=== PATIENT | female | born 1990 | race Caucasian/White ===

== ENCOUNTER 2018-11-29 18:23 | Emergency (ER) | payer SELFPAY ==
[2018-11-29] MEDS ORDERED: LIDOCAINE VISCOUS 2% SOLN 15 ML UDC ONE (19:41)
[2018-11-29] MEDS ORDERED: MAGNE/ALUM HYDROXD 30 ML UCUP ONE (19:41)
[2018-11-29 19:47] LABS: Urine Blood TRACE (NEG); Urine Glucose NEGATIVE (NEG); Urine Protein 1+ (NEG); Urine Specific Gravity >1.030 (1.005-1.030)
[2018-11-29] MEDS ORDERED: NA CHLORIDE 0.9% 1,000 ML ONE (19:54)
[2018-11-29 19:57] LABS: Absolute Lymphocytes (CBC) 4.3 K/uL (0.7-4.9); Absolute Monocytes 1.4 K/uL (0.1-1.3); Absolute Neutrophil 6.7 K/uL (1.8-8.0); Basophils % 0.8 % (0-1.3); Eosinophils % 1.4 % (0-4.4); Hematocrit 41.2 % (36.0-45.0); Lymphocytes % 34.2 % (15.3-44.8); MPV 7.7 fL (7.6-11.3); Monocytes % 10.8 % (3.3-12.3); RBC Red Blood Cell Count 4.72 M/uL (3.86-4.86)
[2018-11-29 19:58] LABS: Barbiturates NEGATIVE (NEGATIVE); Benzodiazepines NEGATIVE (NEGATIVE); Cocaine NEGATIVE (NEGATIVE); METHAMPHETAM NEGATIVE (NEGATIVE); Methadone NEGATIVE (NEGATIVE); Opiates NEGATIVE (NEGATIVE); Phencyclidine NEGATIVE (NEGATIVE); THC Cannibis NEGATIVE (NEGATIVE)
[2018-11-29 20:12] LABS: BUN Blood Urea Nitrogen 12 mg/dL (7-18); Bicarbonate 25 mmol/L (21-32); Glucose Level 101 mg/dL (74-106); Potassium 3.2 mmol/L (3.5-5.1); Sodium Level 138 mmol/L (136-145)
--- NOTE | 2018-11-29 20:46 | ER ---
Nurse's Notes [facility] Name: Erica Null Age: 28 yrs Sex: Female : 1990 Arrival Date: 11/29/2018 Time: 18:27 Bed 30 Private MD: Diagnosis: Epilepsy and recurrent seizures Presentation: 11/29 18:28 Presenting complaint: EMS states: Seizures x5 times today, pt reports has had seizure sg like activity in the past but not really as bad as today , pt reports feeling sleepy and tired at this time. Transition of care: patient was not received from another setting of care. Onset of symptoms was November 29, 2018. Risk Assessment: Do you want to hurt yourself or someone else? Patient reports no desire to harm self or others. Initial Sepsis Screen: Does the patient meet any 2 criteria? No. Patient's initial sepsis screen is negative. Does the patient have a suspected source of infection? No. Patient's initial sepsis screen is negative. Care prior to arrival: Glucose check: 109. 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 - Social history:: Smoking status: Patient uses tobacco products. - Ebola Screening: : Patient negative for fever greater than or equal to 101.5 degrees Fahrenheit, and additional compatible Ebola Virus Disease symptoms Patient denies exposure to infectious person Patient denies travel to an Ebola-affected area in the 21 days before illness onset No symptoms or risks identified at this time. Screenin:32 Abuse screen: Denies threats or abuse. Denies injuries from another. Nutritional sg screening: No deficits noted. Tuberculosis screening: No symptoms or risk factors identified. Never had TB. Fall Risk None identified. Assessment: 18:32 General: Appears in no apparent distress. comfortable, well developed, well nourished, sg Behavior is cooperative, appropriate for age, quiet. Pain: Complains of pain in headache, body aches. Neuro: Level of Consciousness is awake, alert, obeys commands, Oriented to person, place, time, Crane Manager are equal bilaterally Moves all extremities. Speech is normal, Facial symmetry appears normal. Cardiovascular: Patient's skin is warm and dry. Chest pain is denied. Respiratory: Airway is patent Respiratory effort is even, unlabored, Respiratory pattern is regular, symmetrical. Respiratory: Reports cough that is non-productive, hacking, persistent Breath sounds are coarse. GI: Abdomen is flat, non-distended. : No signs and/or symptoms were reported regarding the genitourinary system. EENT: No signs and/or symptoms were reported regarding the EENT system. Derm: Skin is pink, warm \\T\\ dry. Musculoskeletal: Circulation, motion, and sensation intact. Swelling absent. 19:30 Reassessment: Patient appears in no apparent distress at this time. pt reports " I sg forgot to tell you and the provider that I fell and hit my head during one of my seizures one day a couple days ago, I have pain in the back of my head and in my right ear and I am unable to turn my head to the right side. 19:52 Reassessment: Patient appears in no apparent distress at this time. pt complains of sg pain the left side of tongue from biting it due to seizures, no bleeding or injury noted at this time, there is old scarring noted, pt educated on the effects of GI Cocktail to provide pain relief to oral mucosa as well as sore throat and abd pain, pt stated understanding. 21:02 Reassessment: Patient states feeling better. mg2 Vital Signs: 18:30 BP 123 / 92; Pulse 88; Resp 17; Temp 98.2; Pulse Ox 98% on R/A; Pain 2/10; sg 19:11 BP 122 / 88; Pulse 81 MON; Resp 16; Pulse Ox 99% on R/A; sg 19:11 Normal Sinus Rhythm sg Angelia Coma Score: 21:00 Eye Response: spontaneous(4). Verbal Response: oriented(5). Motor Response: obeys mg2 commands(6). Total: 15. ED Course: 18:27 Patient arrived in ED. sg 18:29 Triage completed. sg 18:32 Mic Stone, KYLEIGH is Primary Nurse. sg 18:32 Arm band placed on. sg 18:58 Iasbella Doyle FNP-C [facility]. kb 18:58 Pranay Jacobs MD is Attending Physician. kb 19:30 Urine collected: clean catch specimen, [place] colored. sg 19:47 Initial lab(s) drawn, by me, sent to lab. Flu and/or RSV swab sent to lab. Strep swab lt1 sent to lab. Inserted saline lock: 20 gauge in right antecubital area, using aseptic technique. Missed attempt(s): 22 gauge in right antecubital area. 21:02 No provider procedures requiring assistance completed. IV discontinued, intact, mg2 bleeding controlled, No redness/swelling at site. Pressure dressing applied. 21:03 Seizure precautions initiated. mg2 Administered Medications: 19:30 Drug: GI Cocktail without - (Maalox Suspension 30 ml, Lidocaine Liquid 2 % 15 sg ml) Route: PO; 20:55 Follow up: Response: No adverse reaction; Marked relief of symptoms mg2 20:54 Not Given (Patient Refused): NS 0.9% 1000 ml IV at 1000 ml once sg Outcome: 20:44 Discharge ordered by MD. kb 21:03 Discharged to home ambulatory. mg2 21:03 Condition: stable 21:03 Discharge instructions given to patient, Instructed on discharge instructions, follow up and referral plans. Demonstrated understanding of instructions, follow-up care. 21:04 Patient left the ED. mg2 Signatures: Isabella Doyle, GROMMET WORKER-C GROMMET WORKER-Ckb Mic Stone RN RN sg Douglas Pena RN RN mg2 Radha, Sudha lt1 Corrections: (The following items were deleted from the chart) 18:32 18:28 Presenting complaint: EMS states: Seizures x5 times today, pt reports has had sg seizure like activity in the past but no real diagnosis of seizure disorder, pt reports feeling sleepy and tired at this time sg
--- NOTE | 2018-11-29 20:46 | EDPHYS ---
Physician Documentation [facility] Name: Erica Null Age: 28 yrs Sex: Female : 1990 Arrival Date: 11/29/2018 Time: 18:27 Bed 30 Private MD: ED Physician Pranay Jacobs HPI: 11/29 19:44 This 28 yrs old Female presents to ER via EMS with complaints of Probable kb Seizure. 19:44 The patient presents with a history of multiple seizures, a total of 5. Character of kb seizure(s): Loss of consciousness: the patient did not lose consciousness, Motor activity: generalized, shaking all over, Incontinence: none, Apnea: the patient did not experience apnea, Circulation: the patient did not experience evidence of pulse disturbance. Seizure onset: today. Context: the seizure(s) was witnessed, by a friend, occurred at home. Seizure Hx: Original onset: longstanding, Cause: synthetic marijuana use. Associated injury: Other: tongue, abrasion, pain. Current symptoms: Currently, the patient is not experiencing any symptoms. The patient has experienced similar episodes in the past. The patient has not recently seen a physician. Pt reports she has had several seizures over the past few days. States she always has seizures when she tries to stop smoking synthetic marijuana . DIRECTOR DECISION SUPPORT: 21:03 lmp unknown mg2 Historical: - Allergies: 18:30 PENICILLINS; sg - PMHx: 18:30 Bipolar disorder; Schizophrenia; Seizures; sg - PSHx: 18:30 wrist sx; sg - Immunization history:: Adult Immunizations not up to date. - Social history:: Smoking status: Patient uses tobacco products. - Ebola Screening: : Patient negative for fever greater than or equal to 101.5 degrees Fahrenheit, and additional compatible Ebola Virus Disease symptoms Patient denies exposure to infectious person Patient denies travel to an Ebola-affected area in the 21 days before illness onset No symptoms or risks identified at this time. ROS: 19:42 Constitutional: Negative for fever, chills, and weight loss, Neck: Negative for injury, kb pain, and swelling, Cardiovascular: Negative for chest pain, palpitations, and edema, Respiratory: Negative for shortness of breath, cough, wheezing, and pleuritic chest pain, Abdomen/GI: Negative for abdominal pain, nausea, vomiting, diarrhea, and constipation, Back: Negative for injury and pain, : Negative for injury, bleeding, discharge, and swelling, MS/Extremity: Negative for injury and deformity, Skin: Negative for injury, rash, and discoloration. 19:42 Neuro: Positive for seizure activity. 19:42 ENT: Positive for sore throat. kb Exam: 19:42 Constitutional: This is a well developed, well nourished patient who is awake, alert, kb and in no acute distress. Head/Face: Normocephalic, atraumatic. Eyes: Pupils equal round and reactive to light, extra-ocular motions intact. Lids and lashes normal. Conjunctiva and sclera are non-icteric and not injected. Cornea within normal limits. Periorbital areas with no swelling, redness, or edema. ENT: Nares patent. No nasal discharge, no septal abnormalities noted. Tympanic membranes are normal and external auditory canals are clear. Oropharynx with no redness, swelling, or masses, exudates, or evidence of obstruction, uvula midline. Mucous membranes moist. Neck: Trachea midline, no thyromegaly or masses palpated, and no cervical lymphadenopathy. Supple, full range of motion without nuchal rigidity, or vertebral point tenderness. No Meningismus. Chest/axilla: Normal chest wall appearance and motion. Nontender with no deformity. No lesions are appreciated. Cardiovascular: Regular rate and rhythm with a normal S1 and S2. No gallops, murmurs, or rubs. Normal PMI, no JVD. No pulse deficits. Respiratory: Lungs have equal breath sounds bilaterally, clear to auscultation and percussion. No rales, rhonchi or wheezes noted. No increased work of breathing, no retractions or nasal flaring. Abdomen/GI: Soft, non-tender, with normal bowel sounds. No distension or tympany. No guarding or rebound. No evidence of tenderness throughout. Skin: Warm, dry with normal turgor. Normal color with no rashes, no lesions, and no evidence of cellulitis. MS/ Extremity: Pulses equal, no cyanosis. Neurovascular intact. Full, normal range of motion. Neuro: Awake and alert, GCS 15, oriented to person, place, time, and situation. Cranial nerves II-XII grossly intact. Motor strength 5/5 in all extremities. Sensory grossly intact. Cerebellar exam normal. Normal gait. Vital Signs: 18:30 BP 123 / 92; Pulse 88; Resp 17; Temp 98.2; Pulse Ox 98% on R/A; Pain 2/10; sg 19:11 BP 122 / 88; Pulse 81 MON; Resp 16; Pulse Ox 99% on R/A; sg 19:11 Normal Sinus Rhythm sg Marquette Coma Score: 21:00 Eye Response: spontaneous(4). Verbal Response: oriented(5). Motor Response: obeys mg2 commands(6). Total: 15. MDM: 18:58 Patient medically screened. kb 19:43 Data reviewed: vital signs, nurses notes. Data interpreted: Pulse oximetry: on room air kb is 99 %. Interpretation: normal. 20:43 Counseling: I had a detailed discussion with the patient and/or guardian regarding: the kb historical points, exam findings, and any diagnostic results supporting the discharge/admit diagnosis, lab results, the need for outpatient follow up, a family practitioner, to return to the emergency department if symptoms worsen or persist or if there are any questions or concerns that arise at home. 11/29 19:23 Order name: CBC with Diff; Complete Time: 20:08 kb 11/29 19:23 Order name: Basic Metabolic Panel; Complete Time: 20:12 kb 11/29 19:23 Order name: UDS; Complete Time: 20:08 kb 11/29 19:23 Order name: Flu; Complete Time: 20:44 kb 11/29 19:23 Order name: Strep; Complete Time: 20:44 kb 11/29 19:40 Order name: Urine Dipstick--Ancillary (enter results); Complete Time: 19:48 ar5 11/29 19:23 Order name: Urine Dipstick-Ancillary (obtain specimen); Complete Time: 19:41 kb 11/29 19:23 Order name: IV Start; Complete Time: 19:41 kb 11/29 19:40 Order name: Urine --Ancillary (enter results); Complete Time: 19:48 ar5 11/29 20:44 Order name: Throat Culture EDMS Administered Medications: 19:30 Drug: GI Cocktail without - (Maalox Suspension 30 ml, Lidocaine Liquid 2 % 15 sg ml) Route: PO; 20:55 Follow up: Response: No adverse reaction; Marked relief of symptoms mg2 20:54 Not Given (Patient Refused): NS 0.9% 1000 ml IV at 1000 ml once sg Disposition: 11/29/18 20:44 Discharged to Home. Impression: Epilepsy and recurrent seizures. - Condition is Stable. - Discharge Instructions: Seizure, Adult, [id number]. - Medication Reconciliation Form, Thank You Letter, Antibiotic Education, Prescription Opioid Use form. - Follow up: Emergency Department; When: As needed; Reason: Worsening of condition. Follow up: Private Physician; When: 2 - 3 days; Reason: Recheck today's complaints, Continuance of care, Re-evaluation by your physician. Addendum: 12/02/2018 07:06 Co-signature as Attending Physician, Pranay Jacobs MD. r n Signatures: Dispatcher [employer] EDIsabella Olguin, FELECIA-C CASKET UPHOLSTERER-Mic Hernandez RN RN Pranay Menjivar MD MD rn Gardose, Michele, RN RN mg2 Corrections: (The following items were deleted from the chart) 11/29 19:43 19:42 Constitutional: Negative for fever, chills, and weight loss, ENT: Negative for kb injury, pain, and discharge, Neck: Negative for injury, pain, and swelling, Cardiovascular: Negative for chest pain, palpitations, and edema, Respiratory: Negative for shortness of breath, cough, wheezing, and pleuritic chest pain, Abdomen/GI: Negative for abdominal pain, nausea, vomiting, diarrhea, and constipation, Back: Negative for injury and pain, : Negative for injury, bleeding, discharge, and swelling, MS/Extremity: Negative for injury and deformity, Skin: Negative for injury, rash, and discoloration, kb 21:04 20:44 11/29/2018 20:44 Discharged to Home. Impression: Epilepsy and recurrent seizures. mg2 Condition is Stable. Discharge Instructions: Seizure, Adult, [id number]. Forms are Medication Reconciliation Form, Thank You Letter, Antibiotic Education, Prescription Opioid Use. Follow up: Emergency Department; When: As needed; Reason: Worsening of condition. Follow up: Private Physician; When: 2 - 3 days; Reason: Recheck today's complaints, Continuance of care, Re-evaluation by your physician. kb
== END 2018-11-29 21:04 | disposition home or self-care (01) ==
LOC: ER 18:23
DX: G40.909 Epilepsy, unspecified, not intractable, without status epilepticus (principal); F31.9 Bipolar disorder, unspecified; F20.9 Schizophrenia, unspecified; Z72.0 Tobacco use; Z88.0 Allergy status to penicillin
CPT/HCPCS: 36415; 80048; 80307; 81003; 81025; 85025; 87070; 87081; 87804; 99284; J7030

== ENCOUNTER 2018-12-02 08:05 | Emergency (ER) | payer SELFPAY ==
[2018-12-02] MEDS ORDERED: NA CHLORIDE 0.9% 1,000 ML ONE (08:26)
[2018-12-02 08:37] LABS: Absolute Lymphocytes (CBC) 3.8 K/uL (0.7-4.9); Absolute Monocytes 1.4 K/uL (0.1-1.3); Absolute Neutrophil 4.8 K/uL (1.8-8.0); Basophils % 0.6 % (0-1.3); Eosinophils % 1.7 % (0-4.4); Hematocrit 39.5 % (36.0-45.0); Lymphocytes % 37.2 % (15.3-44.8); Monocytes % 13.4 % (3.3-12.3); RBC Red Blood Cell Count 4.57 M/uL (3.86-4.86)
[2018-12-02 08:49] LABS: Potassium 3.3 mmol/L (3.5-5.1)
[2018-12-02 08:57] LABS: Urine Blood NEGATIVE (NEG); Urine Glucose NEGATIVE (NEG); Urine Protein TRACE (NEG)
[2018-12-02] MEDS ORDERED: POTASSIUM CL SA 10 MEQ TAB PO ONE (09:36)
--- NOTE | 2018-12-02 09:45 | ER ---
Nurse's Notes [facility] Name: Erica Null Age: 28 yrs Sex: Female : 1990 Arrival Date: 12/02/2018 Time: 08:07 Bed 6 Private MD: Diagnosis: Dehydration;Cellulitis of face Presentation: 12/02 08:08 Presenting complaint: EMS states: [facility] they told her she looked tw2 flush and was not herself, pt is trying to get off synthetics and hasnt done that for about a week, reports feeling hot, afebrile, vs stable. Transition of care: patient was not received from another setting of care. Onset of symptoms was December 02, 2018. Risk Assessment: Do you want to hurt yourself or someone else? Patient reports no desire to harm self or others. Initial Sepsis Screen: Does the patient meet any 2 criteria? No. Patient's initial sepsis screen is negative. Does the patient have a suspected source of infection? No. Patient's initial sepsis screen is negative. Care prior to arrival: None. 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 tw2 Historical: - Allergies: 08:10 PENICILLINS; tw2 - PMHx: 08:10 Bipolar disorder; Schizophrenia; Seizures; tw2 - PSHx: 08:10 wrist sx; tw2 - Immunization history:: Adult Immunizations unknown. - Social history:: Smoking status: Patient uses tobacco products, smokes one pack cigarettes per day. - Ebola Screening: : Patient denies travel to an Ebola-affected area in the 21 days before illness onset. - Family history:: not pertinent. - Hospitalizations: : No recent hospitalization is reported. Screenin:09 Abuse screen: Denies threats or abuse. Nutritional screening: No deficits noted. tw2 Tuberculosis screening: No symptoms or risk factors identified. Fall Risk None identified. Assessment: 08:10 General: Appears unkempt, Behavior is anxious. Pain: Denies pain. Neuro: Level of tw2 Consciousness is awake, alert, obeys commands, Oriented to person, place, time, situation, Reports dizziness. Cardiovascular: Heart tones S1 S2 Patient's skin is warm and dry. Respiratory: Airway is patent Respiratory effort is even, unlabored, Respiratory pattern is regular, symmetrical, Breath sounds are clear bilaterally. GI: No signs and/or symptoms were reported involving the gastrointestinal system. GI: Abdomen is flat, Bowel sounds present X 4 quads. : No signs and/or symptoms were reported regarding the genitourinary system. EENT: No signs and/or symptoms were reported regarding the EENT system. Derm: Skin is flushed, Skin temperature is warm. Musculoskeletal: Range of motion:. 09:13 Reassessment: Patient appears in no apparent distress at this time. No changes from tw2 previously documented assessment. Patient and/or family updated on plan of care and expected duration. Pain level reassessed. Patient is alert, oriented x 3, equal unlabored respirations, skin warm/dry/pink. 09:53 Reassessment: Patient appears in no apparent distress at this time. No changes from tw2 previously documented assessment. Patient and/or family updated on plan of care and expected duration. Pain level reassessed. Patient is alert, oriented x 3, equal unlabored respirations, skin warm/dry/pink. Vital Signs: 08:07 BP 123 / 82; Pulse 101; Resp 18; Temp 98.8(O); Pulse Ox 100% on R/A; Weight 54.43 kg tw2 (R); 09:12 BP 117 / 66; Pulse 83; Resp 17; Pulse Ox 100% on R/A; tw2 09:52 BP 114 / 76; Pulse 88; Resp 17; Pulse Ox 100% on R/A; tw2 ED Course: 08:07 Patient arrived in ED. tw2 08:09 Triage completed. tw2 08:09 Arm band placed on. tw2 08:09 Bed in low position. Call light in reach. child monitor on. Pulse ox on. NIBP on. tw2 Warm blanket given. 08:11 Pranay Jacobs MD is Attending Physician. rn 08:13 Jessi Lou RN is Primary Nurse. tw2 08:25 Inserted saline lock: 22 gauge in left antecubital area, using aseptic technique. Blood tw2 collected. 08:27 EKG done, by mechanical sound technician. reviewed by Pranay Jacobs MD. at1 09:58 No provider procedures requiring assistance completed. IV discontinued, intact, tw2 bleeding controlled, No redness/swelling at site. Pressure dressing applied. Administered Medications: 08:25 Drug: NS 0.9% 1000 ml Route: IV; Rate: 1000 ml; Site: left antecubital; tw2 09:31 Follow up: Response: No adverse reaction; IV Status: Completed infusion; IV Intake: tw2 1000ml 09:31 Drug: Potassium Chloride 40 mEq Route: PO; tw2 09:57 Follow up: Response: No adverse reaction tw2 09:55 Drug: Clindamycin 300 mg Route: PO; tw2 09:57 Follow up: Response: No adverse reaction tw2 Intake: 09:31 IV: 1000ml; Total: 1000ml. tw2 Outcome: 09:45 Discharge ordered by . rn 09:58 Discharged to home ambulatory. tw2 09:58 Condition: stable 09:58 Discharge instructions given to patient, Instructed on discharge instructions, follow up and referral plans. medication usage, Demonstrated understanding of instructions, follow-up care, medications, Prescriptions given X 1. 09:59 Patient left the ED. tw2 Signatures: Pranay Jacobs MD MD rn Gonzales, Amanda, magnet valve assembler EKG Tat1 Jessi Lou RN RN tw2 Corrections: (The following items were deleted from the chart) 09:53 09:52 BP 114 / 76; Pulse 8bpm; Resp 17bpm; Pulse Ox 100% RA; tw2 tw2
--- NOTE | 2018-12-02 09:45 | EDPHYS ---
Physician Documentation [facility] Name: Erica Null Age: 28 yrs Sex: Female : 1990 Arrival Date: 12/02/2018 Time: 08:07 Bed 6 Private MD: ED Physician Pranay Jacobs HPI: 12/02 08:16 This 28 yrs old Female presents to ER via EMS with complaints of Flush, rn Dizziness. 08:22 The patient presents with dizziness. Onset: The symptoms/episode began/occurred rn yesterday. Modifying factors: The symptoms are alleviated by nothing, the symptoms are aggravated by changing position. Severity of symptoms: At their worst the symptoms were mild in the emergency department the symptoms are unchanged. The patient has not experienced similar symptoms in the past. Reports staying at [facility], has not been taking meds, reports others told her she looked flush today, feels flushed and dizzy, had a seizure a few days ago, bit her tongue twice, and hasn't been eating much since then. No head injury, no syncope, no chest pain/sob. No vomiting/diarrhea. 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 tw2 Historical: - Allergies: 08:10 PENICILLINS; tw2 - PMHx: 08:10 Bipolar disorder; Schizophrenia; Seizures; tw2 - PSHx: 08:10 wrist sx; tw2 - Immunization history:: Adult Immunizations unknown. - Social history:: Smoking status: Patient uses tobacco products, smokes one pack cigarettes per day. - Ebola Screening: : Patient denies travel to an Ebola-affected area in the 21 days before illness onset. - Family history:: not pertinent. - Hospitalizations: : No recent hospitalization is reported. ROS: 08:24 Constitutional: Negative for fever, chills, and weight loss, Eyes: Negative for injury, rn pain, redness, and discharge, ENT: + tongue injury and sore throat Neck: Negative for injury, and swelling, Cardiovascular: Negative for chest pain, palpitations, and edema, Respiratory: Negative for shortness of breath, cough, wheezing, and pleuritic chest pain, Abdomen/GI: Negative for abdominal pain, nausea, vomiting, diarrhea, and constipation, MS/Extremity: Negative for injury and deformity, Skin: Negative for injury, rash, and discoloration, Neuro: Negative for headache, numbness, tingling Exam: 08:24 Constitutional: This is a well developed, well nourished patient who is awake, alert, rn and in no acute distress. Sitting up, + facial flushing. Head/Face: Normocephalic, atraumatic. Eyes: Pupils equal round and reactive to light, extra-ocular motions intact. Lids and lashes normal. Conjunctiva and sclera are non-icteric and not injected. Cornea within normal limits. Periorbital areas with no swelling, redness, or edema. ENT: Healing bilateral tongue lacerations, no active bleeding, no stridor, no pooled secretions. Neck: + mildly tender bilateral cervical LAD, no meningismus Cardiovascular: Tachycardic, regular, no murmur Respiratory: No increased work of breathing, no retractions or nasal flaring. Abdomen/GI: soft, non-tender Skin: Warm, dry, + facial flushing without warmth/fluctuance, no rash elsewhere on body. MS/ Extremity: Pulses equal, no cyanosis. Neurovascular intact. Full, normal range of motion. Equal circumference. Neuro: Awake and alert, GCS 15, oriented to person, place, time, and situation. Cranial nerves II-XII grossly intact. Motor strength 5/5 in all extremities. Sensory grossly intact. Vital Signs: 08:07 BP 123 / 82; Pulse 101; Resp 18; Temp 98.8(O); Pulse Ox 100% on R/A; Weight 54.43 kg tw2 (R); 09:12 BP 117 / 66; Pulse 83; Resp 17; Pulse Ox 100% on R/A; tw2 09:52 BP 114 / 76; Pulse 88; Resp 17; Pulse Ox 100% on R/A; tw2 MDM: 08:11 Patient medically screened. rn 09:38 Differential diagnosis: generalized weakness, hypovolemia, idiopathic dizziness. 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 Counseling: I had a detailed discussion with the patient and/or guardian regarding: the historical points, exam findings, and any diagnostic results supporting the discharge/admit diagnosis, lab results, the need for outpatient follow up, to return to the emergency department if symptoms worsen or persist or if there are any questions or concerns that arise at home. Special discussion: I discussed with the patient/guardian in detail that at this point there is no indication for admission to the hospital. It is understood, however, that if the symptoms persist or worsen the patient needs to return immediately for re-evaluation. Based on the history and exam findings, there is no indication for further emergent testing or inpatient evaluation. I discussed with the patient/guardian the need to see the primary care provider for further evaluation of the symptoms. ED course: Pt improved, eating, more hydrated. No clear etiology for facial erythema, will place on abx in case source from bitten tongue/facial cellulitis. . 12/02 08:12 Order name: CBC with Diff; Complete Time: 09:21 rn 12/02 08:12 Order name: Basic Metabolic Panel; Complete Time: 09:21 rn 12/02 08:12 Order name: Strep; Complete Time: 09:21 rn 12/02 08:12 Order name: Flu; Complete Time: 09:21 rn 12/02 08:45 Order name: Urine Dipstick--Ancillary (enter results); Complete Time: 09:21 bd 12/02 08:45 Order name: Urine --Ancillary (enter results); Complete Time: 09:21 bd 12/02 08:12 Order name: IV Start; Complete Time: 08:43 rn 12/02 08:12 Order name: Urine Dipstick-Ancillary (obtain specimen); Complete Time: 08:43 rn 12/02 08:12 Order name: Urine Test (obtain specimen); Complete Time: 08:43 rn 12/02 08:12 Order name: EKG; Complete Time: 08:13 rn 12/02 09:14 Order name: Throat Culture [facility] 12/02 08:12 Order name: EKG - Nurse/Tech; Complete Time: 08:13 rn Administered Medications: 08:25 Drug: NS 0.9% 1000 ml Route: IV; Rate: 1000 ml; Site: left antecubital; tw2 09:31 Follow up: Response: No adverse reaction; IV Status: Completed infusion; IV Intake: tw2 1000ml 09:31 Drug: Potassium Chloride 40 mEq Route: PO; tw2 09:57 Follow up: Response: No adverse reaction tw2 09:55 Drug: Clindamycin 300 mg Route: PO; tw2 09:57 Follow up: Response: No adverse reaction tw2 Disposition: 12/02/18 09:45 Discharged to Home. Impression: Dehydration, Cellulitis of face. - Condition is Stable. - Discharge Instructions: Cellulitis, Adult, Dehydration, Adult. - Prescriptions for Clindamycin HCl 300 mg Oral Capsule - take 1 capsule by ORAL route every 6 hours for 10 days; 40 capsule. - Medication Reconciliation Form, Thank You Letter, Antibiotic Education, Prescription Opioid Use form. - Follow up: Private Physician; When: As needed; Reason: Recheck today's complaints, Re-evaluation by your physician. - Problem is new. - Symptoms have improved. Signatures: Dispatcher [employer] EDMS Pranay Jacobs MD MD rn Wise, Tara, RN RN tw2 Corrections: (The following items were deleted from the chart) 09:59 09:45 12/02/2018 09:45 Discharged to Home. Impression: Dehydration; Cellulitis of face. tw2 Condition is Stable. Forms are Medication Reconciliation Form, Thank You Letter, Antibiotic Education, Prescription Opioid Use. Follow up: Private Physician; When: As needed; Reason: Recheck today's complaints, Re-evaluation by your physician. Problem is new. Symptoms have improved. rn
[2018-12-02] MEDS ORDERED: CLINDAMYCIN HCL 150 MG CAP ONE (10:06)
== END 2018-12-02 09:59 | disposition home or self-care (01) ==
LOC: ER 08:05
DX: L03.211 Cellulitis of face (principal); F31.9 Bipolar disorder, unspecified; F20.9 Schizophrenia, unspecified; Z88.0 Allergy status to penicillin; F17.210 Nicotine dependence, cigarettes, uncomplicated
CPT/HCPCS: 36415; 80048; 81003; 81025; 85025; 87070; 87081; 87804; 93005; 96360; 99284; J7030

== ENCOUNTER 2018-12-16 23:46 | Emergency (ER) | payer SELFPAY ==
[2018-12-17 00:07] LABS: Urine Blood NEGATIVE (NEG); Urine Glucose NEGATIVE (NEG); Urine Protein NEGATIVE (NEG)
[2018-12-17] MEDS ORDERED: FAMOTIDINE 20 MG/2 ML VIAL IV ONE (00:13)
[2018-12-17] MEDS ORDERED: ONDANSETRON 4 MG/2 ML VIAL ONE (00:13)
[2018-12-17 00:29] LABS: Barbiturates NEGATIVE (NEGATIVE); Benzodiazepines NEGATIVE (NEGATIVE); Cocaine NEGATIVE (NEGATIVE); METHAMPHETAM NEGATIVE (NEGATIVE); Methadone NEGATIVE (NEGATIVE); Opiates NEGATIVE (NEGATIVE); Phencyclidine NEGATIVE (NEGATIVE); THC Cannibis POSITIVE (NEGATIVE)
[2018-12-17 00:30] LABS: Absolute Monocytes 1.3 K/uL (0.1-1.3); Absolute Neutrophil 13.7 K/uL (1.8-8.0); Eosinophils % 0.6 % (0-4.4); Lymphocytes % 20.6 % (15.3-44.8); MPV 7.5 fL (7.6-11.3); Monocytes % 6.9 % (3.3-12.3); RBC Red Blood Cell Count 4.44 M/uL (3.86-4.86)
[2018-12-17 00:37] LABS: Urine Amorphous Sediment 2+ /HPF (NONE SEEN); Urine Bacteria <20 /HPF (<20); Urine Culture Reflex Order NOT NEEDED; Urine Mucus LIGHT /HPF (NONE SEEN); Urine RBC NONE SEEN /HPF (NONE SEEN)
[2018-12-17 00:47] LABS: ALT/SGPT 22 U/L (12-78); AST/SGOT 15 U/L (15-37); Albumin 3.8 g/dL (3.4-5.0); Alkaline Phosphatase 63 U/L (45-117); BUN Blood Urea Nitrogen 14 mg/dL (7-18); Bicarbonate 29 mmol/L (21-32); Bilirubin Direct < 0.1 mg/dL (0-0.2); Bilirubin Total 0.2 mg/dL (0.2-1.0); Glucose Level 99 mg/dL (74-106); Lipase 79 U/L (73-393); Potassium 3.7 mmol/L (3.5-5.1); Protein, Total 8.1 g/dL (6.4-8.2); Sodium Level 142 mmol/L (136-145)
[2018-12-17] MEDS ORDERED: KETOROLAC 30 MG/ML INJ ONE (02:18)
[2018-12-17] MEDS ORDERED: NA CHLORIDE 0.9% 1,000 ML ONE (02:18)
--- NOTE | 2018-12-17 05:19 | EDPHYS ---
Physician Documentation [facility] Name: Erica Null Age: 28 yrs Sex: Female : 1990 Arrival Date: 12/16/2018 Time: 23:47 Bed 4 Private MD: ED Physician Derrick Calhoun HPI: 12/17 00:00 This 28 yrs old Female presents to ER via EMS with complaints of nausea, cp vomiting. 00:00 The patient presents to the emergency department with nausea, that is moderate, cp vomiting, that is intermittent, described as bilious, abdominal pain, of the right lower quadrant and left lower quadrant. Onset: The symptoms/episode began/occurred today. Possible causes: . Associated signs and symptoms: Pertinent negatives: constipation, diarrhea, dysuria, fever, GI bleeding. Severity of symptoms: in the emergency department the symptoms are unchanged. 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 - Social history:: Smoking status: Patient uses tobacco products, smokes one pack cigarettes per day. Patient/guardian denies using alcohol. - Ebola Screening: : No symptoms or risks identified at this time. ROS: 12/17 00:05 Constitutional: Negative for body aches, chills, fever. cp 00:05 Eyes: Negative for injury, pain, redness, and discharge. cp 00:05 ENT: Negative for drainage from ear(s), ear pain, sore throat, difficulty swallowing, difficulty handling secretions. 00:05 Cardiovascular: Negative for chest pain. 00:05 Respiratory: Negative for cough, wheezing. 00:05 Abdomen/GI: Positive for abdominal pain, nausea and vomiting, Negative for diarrhea, constipation, black/tarry stool, rectal bleeding. 00:05 Back: Negative for pain at rest, pain with movement, radiated pain. 00:05 : Negative for urinary symptoms, vaginal bleeding, vaginal discharge. 00:05 Skin: Negative for rash. 00:05 Neuro: Negative for altered mental status, headache, weakness. 00:05 All other systems are negative. Exam: 00:15 Constitutional: The patient appears in no acute distress, alert, awake, non-toxic, well cp developed, well nourished. 00:15 Head/Face: Normocephalic, atraumatic. cp 00:15 Eyes: Periorbital structures: appear normal, Conjunctiva: normal, no exudate, no injection, Sclera: no appreciated abnormality, Lids and lashes: appear normal, bilaterally. 00:15 ENT: External ear(s): are unremarkable, Ear canal(s): are normal, clear, TM's: bulging, is not appreciated, bilaterally, dullness, bilaterally, erythema, is not appreciated, bilaterally, Nose: is normal, Mouth: Lips: moist, Oral mucosa: moist, Posterior pharynx: Airway: no evidence of obstruction, patent, Tonsils: are normal in appearance, Uvula: midline, swelling, is not appreciated, erythema, is not appreciated, exudate, is not appreciated. 00:15 Neck: ROM/movement: is normal, is supple, without pain, no range of motions limitations, no nuchal rigidity. 00:15 Chest/axilla: Inspection: normal, Palpation: is normal, no crepitus, no tenderness. 00:15 Cardiovascular: Rate: normal, Rhythm: regular. 00:15 Respiratory: the patient does not display signs of respiratory distress, Respirations: normal, no use of accessory muscles, no retractions, no splinting, no tachypnea, labored breathing, is not present, Breath sounds: are clear throughout, no decreased breath sounds, no stridor, no wheezing. 00:15 Abdomen/GI: Inspection: abdomen appears normal, Bowel sounds: active, all quadrants, Palpation: soft, in all quadrants, moderate abdominal tenderness, in the right lower quadrant and left lower quadrant, rebound tenderness, is not appreciated, involuntary guarding, is not appreciated. 00:15 Back: pain, is absent, ROM is normal. 00:15 Skin: no rash present. Vital Signs: 12/16 23:50 BP 129 / 98; Pulse 99; Resp 18; Temp 98.2(O); Pulse Ox 100% on R/A; Weight 65.77 kg ak1 (R); Height 5 ft. 1 in. (154.94 cm) (R); Pain 0/10; 12/17 01:08 BP 104 / 66; Pulse 78; Resp 16; Temp 98.3; Pulse Ox 100% on R/A; ak1 02:30 BP 101 / 66; Pulse 55; Resp 18; Pulse Ox 99% on R/A; ea 03:00 BP 101 / 57; Pulse 56; Resp 18; Pulse Ox 100% on R/A; ea 04:00 BP 103 / 71; Pulse 60; Resp 19; Pulse Ox 99% on R/A; ea 05:50 BP 110 / 68; Pulse 60; Resp 18; Pulse Ox 99% on R/A; ea 12/16 23:50 Body Mass Index 27.40 (65.77 kg, 154.94 cm) ak1 MDM: 12/16 23:55 Patient medically screened. cp 12/17 00:15 Differential diagnosis: Nonspecific abd pain, gastritis, cholecystitis, appendicitis, cp viral gastroenteritis, gastroenteritis. 12/16 23:58 Order name: Urine Microscopic Only; Complete Time: 01:21 ak1 12/17 01:21 Interpretation: Normal except: AMORPH 2+. cp 12/16 23:59 Order name: Basic Metabolic Panel; Complete Time: 01:21 cp 12/16 23:59 Order name: CBC with Diff; Complete Time: 01:21 cp 12/17 01:22 Interpretation: Normal except: WBC 19.3; PLT 558; RDW 15.3; MPV 7.5; NEUT A 13.7. cp 12/16 23:59 Order name: Creatinine for Radiology; Complete Time: 01:21 cp 12/16 23:59 Order name: Hepatic Function; Complete Time: 01:21 cp 12/17 01:22 Interpretation: Normal except: GLOB 4.3; A/G 0.9. cp 12/16 23:59 Order name: Lipase; Complete Time: 01:21 cp 12/16 23:59 Order name: Test, Serum; Complete Time: 01:21 cp 12/17 00:02 Order name: Dilantin; Complete Time: 01:21 cp 12/17 00:02 Order name: UDS; Complete Time: 01:21 cp 12/17 03:09 Interpretation: Normal except: THC POSITIVE. cp 12/17 00:02 Order name: Urine Dipstick--Ancillary (enter results) cm6 12/17 00:02 Order name: Urine --Ancillary (enter results) cm6 12/17 00:39 Order name: XRAY Hand RIGHT 3 View ak1 12/17 01:40 Order name: CT Abd/Pelvis - W/Contrast: r/o appendicitis cp 12/16 23:58 Order name: Urine Dipstick-Ancillary (obtain specimen); Complete Time: 23:58 ak1 12/16 23:58 Order name: Urine Test (obtain specimen); Complete Time: 00:20 ak1 12/16 23:59 Order name: IV Saline Lock; Complete Time: 00:21 cp 12/16 23:59 Order name: Labs collected and sent; Complete Time: 00:21 cp Administered Medications: 00:21 Drug: Zofran 4 mg Route: IVP; Site: right antecubital; ak1 00:38 Follow up: Response: No adverse reaction ak1 00:21 Drug: Pepcid 20 mg Route: IVP; Site: right antecubital; ak1 00:38 Follow up: Response: No adverse reaction ak1 02:11 Drug: TORadol - Ketorolac 15 mg Route: IVP; Site: right antecubital; ea 03:00 Follow up: Response: No adverse reaction; Pain is decreased ea 02:11 Drug: NS 0.9% 1000 ml Route: IV; Rate: 1 bolus; Site: right antecubital; ea 03:30 Follow up: Response: No adverse reaction; IV Status: Completed infusion; IV Intake: ea 1000ml Disposition: 06:53 Co-signature as Attending Physician, Derrick Calhoun MD I agree with the assessment and low plan of care. Disposition: 12/17/18 05:18 Discharged to Home. Impression: Vomiting, Abdominal tenderness, Elevated white blood cell count, Unspecified ovarian cysts. - Condition is Stable. - Discharge Instructions: Abdominal Pain, Adult, Nausea and Vomiting, Adult, Ovarian Cyst, Nausea and Vomiting, Adult, [id number], Abdominal Pain, Adult, [id number], Ovarian Cyst, [id number]. - Prescriptions for Bentyl 20 mg Oral Tablet - take 1 tablet by ORAL route every 6 hours As needed; 20 tablet. Zofran 4 mg Oral Tablet - take 1 tablet by ORAL route every 12 hours As needed; 20 tablet. - Medication Reconciliation Form, Thank You Letter, Antibiotic Education, Prescription Opioid Use form. - Follow up: Private Physician; When: 2 - 3 days; Reason: Recheck today's complaints, Continuance of care, Re-evaluation by your physician. - Problem is new. - Symptoms have improved. Signatures: Dispatcher [employer] EDMS Derrick Calhoun MD MD cha Krenek, Amber RN RN ak1 Derrick Bermeo PA PA cp Antunez, Elena, RN RN ea Corrections: (The following items were deleted from the chart) 01:22 01:21 Normal except: WBC 19.3; PLT 558; RDW 15.3; MPV 7.5. cp cp 06:04 05:18 12/17/2018 05:18 Discharged to Home. Impression: Vomiting; Abdominal tenderness; ea Elevated white blood cell count; Unspecified ovarian cysts. Condition is Stable. Discharge Instructions: Abdominal Pain, Adult, Nausea and Vomiting, Adult, Nausea and Vomiting, Adult, [id number], Abdominal Pain, Adult, Krxn-io-Beis. Prescriptions for Bentyl 20 mg Oral Tablet - take 1 tablet by ORAL route every 6 hours As needed; 20 tablet, Zofran 4 mg Oral Tablet - take 1 tablet by ORAL route every 12 hours As needed; 20 tablet. and Forms are Medication Reconciliation Form, Thank You Letter, Antibiotic Education, Prescription Opioid Use. Follow up: Private Physician; When: 2 - 3 days; Reason: Recheck today's complaints, Continuance of care, Re-evaluation by your physician. Problem is new. Symptoms have improved. low
--- NOTE | 2018-12-17 05:19 | ER ---
Nurse's Notes [facility] Name: Erica Null Age: 28 yrs Sex: Female : 1990 Arrival Date: 12/16/2018 Time: 23:47 Bed 4 Private MD: Diagnosis: Vomiting;Abdominal tenderness;Elevated white blood cell count;Unspecified ovarian cysts Presentation: 12/16 23:51 Presenting complaint: Patient states: vomiting with morning sickness for a few days. pt ak1 waiting at bus stop outside hospital for behavioral medicine. pt stated LMP 11/05/18. pt given 2mg zofran IM. pt A\\T\\OX4 with steady gait. Transition of care: patient was not received from another setting of care. Onset of symptoms was December 16, 2018. Risk Assessment: Do you want to hurt yourself or someone else? Patient reports no desire to harm self or others. Initial Sepsis Screen: Does the patient meet any 2 criteria? No. Patient's initial sepsis screen is negative. Does the patient have a suspected source of infection? No. Patient's initial sepsis screen is negative. Care prior to arrival: None. 23:51 Method Of Arrival: EMS: [facility] ak 23:51 Acuity: JESSICA 4 ak1 Triage Assessment: 23:53 General: Appears in no apparent distress. well groomed, Behavior is crying, pt upset ak1 that Jayson "knocked me up and bailed" pt requested that Jayson not be allowed in her room.. Pain: Denies pain. EENT: No signs and/or symptoms were reported regarding the EENT system. 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 Gait is steady, Speech is normal, Facial symmetry appears normal, Pupils are PERRLA. Cardiovascular: No deficits noted. Respiratory: No deficits noted. GI: Abdomen is round non-distended, Abd is soft and non tender X 4 quads. Reports nausea, vomiting. : No signs and/or symptoms were reported regarding the genitourinary system. Derm: No signs and/or symptoms reported regarding the dermatologic system. Musculoskeletal: No signs and/or symptoms reported regarding the musculoskeletal system. 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 - Social history:: Smoking status: Patient uses tobacco products, smokes one pack cigarettes per day. Patient/guardian denies using alcohol. - Ebola Screening: : No symptoms or risks identified at this time. Screenin:56 Abuse screen: Denies threats or abuse. Denies injuries from another. Nutritional ak1 screening: No deficits noted. Tuberculosis screening: No symptoms or risk factors identified. Fall Risk None identified. Assessment: 23:57 Reassessment: Patient appears in no apparent distress at this time. No changes from ak1 previously documented assessment. Patient is alert, oriented x 3, equal unlabored respirations, skin warm/dry/pink. 12/17 00:22 Reassessment: pt c/o pain to right hand. pt stated she punched the dumpster today. pt ak1 with full ROM to right fingers. pt requesting a xray. pt informed of the wait for lab test result. 01:07 Reassessment: Patient appears in no apparent distress at this time. No changes from ak1 previously documented assessment. Patient is alert, oriented x 3, equal unlabored respirations, skin warm/dry/pink. 02:11 Reassessment: Patient and/or family updated on plan of care and expected duration. Pain ea level reassessed. Patient is alert, oriented x 3, equal unlabored respirations, skin warm/dry/pink. Pt complaining of pain and discomfort to right hand, provider notified, medication order obtained, medication administered. Pt tolerated well. 03:00 Reassessment: Patient and/or family updated on plan of care and expected duration. Pain ea level reassessed. Pt resting with eyes closed, respirations even and unlabored. Chest expansions even and symmetrical. No s/s of even and symmetrical. 04:11 Reassessment: Patient and/or family updated on plan of care and expected duration. Pain ea level reassessed. Pt resting with eyes closed, respirations even and unlabored, chest expansions even and symmetrical. No s/s of pain or discomfort noted at this time. 05:59 Reassessment: Patient and/or family updated on plan of care and expected duration. Pain ea level reassessed. Patient is alert, oriented x 3, equal unlabored respirations, skin warm/dry/pink. Discharge instruction given to patient, verbalized the understanding of instruction. Pt reports symptoms improved some. Pt ambulated out of ED. Pt reported she is going to wait for bus to take her back to the [employer]. Vital Signs: 12/16 23:50 BP 129 / 98; Pulse 99; Resp 18; Temp 98.2(O); Pulse Ox 100% on R/A; Weight 65.77 kg ak1 (R); Height 5 ft. 1 in. (154.94 cm) (R); Pain 0/10; 12/17 01:08 BP 104 / 66; Pulse 78; Resp 16; Temp 98.3; Pulse Ox 100% on R/A; ak1 02:30 BP 101 / 66; Pulse 55; Resp 18; Pulse Ox 99% on R/A; ea 03:00 BP 101 / 57; Pulse 56; Resp 18; Pulse Ox 100% on R/A; ea 04:00 BP 103 / 71; Pulse 60; Resp 19; Pulse Ox 99% on R/A; ea 05:50 BP 110 / 68; Pulse 60; Resp 18; Pulse Ox 99% on R/A; ea 12/16 23:50 Body Mass Index 27.40 (65.77 kg, 154.94 cm) ak1 ED Course: 12/16 23:47 Patient arrived in ED. ds1 23:50 Manuela Coelho, RN is Primary Nurse. ak1 23:52 Triage completed. ak1 23:53 Arm band placed on Patient placed in an exam room, on a stretcher, on pulse oximetry, ak1 Patient notified of wait time. 23:55 Derrick Bermeo PA is PHCP. cp 23:55 Derrick Calhoun MD is Attending Physician. cp 23:56 Patient has correct armband on for positive identification. Bed in low position. Call ak1 light in reach. Side rails up X 1. Pulse ox on. NIBP on. 23:56 Urine collected: clean catch specimen, clear. ak1 23:59 No provider procedures requiring assistance completed. ak1 12/17 00:25 Inserted saline lock: 22 gauge in right antecubital area, using aseptic technique. ak1 ,using aseptic technique. placed by Negrita Barton RN Blood collected. 00:58 X-ray completed. Portable x-ray completed in exam room. Patient tolerated procedure kw well. 01:00 XRAY Hand RIGHT 3 View In Process Unspecified. EDMS 01:50 Radiology exam delayed due to. 04:31 CT completed. Patient tolerated procedure well. Patient moved to CT via stretcher. Patient moved back from CT. 04:37 CT Abd/Pelvis - W/Contrast: r/o appendicitis In Process Unspecified. EDMS 05:55 IV discontinued, intact, bleeding controlled, No redness/swelling at site. Pressure ea dressing applied. Administered Medications: 00:21 Drug: Zofran 4 mg Route: IVP; Site: right antecubital; ak1 00:38 Follow up: Response: No adverse reaction ak1 00:21 Drug: Pepcid 20 mg Route: IVP; Site: right antecubital; ak1 00:38 Follow up: Response: No adverse reaction ak1 02:11 Drug: TORadol - Ketorolac 15 mg Route: IVP; Site: right antecubital; ea 03:00 Follow up: Response: No adverse reaction; Pain is decreased ea 02:11 Drug: NS 0.9% 1000 ml Route: IV; Rate: 1 bolus; Site: right antecubital; ea 03:30 Follow up: Response: No adverse reaction; IV Status: Completed infusion; IV Intake: ea 1000ml Intake: 03:30 IV: 1000ml; Total: 1000ml. ea Outcome: 01:07 Condition: stable ak1 05:18 Discharge ordered by . low 06:01 Discharged to home ambulatory. ea 06:01 Discharge instructions given to patient, Instructed on discharge instructions, follow up and referral plans. medication usage, Demonstrated understanding of instructions, follow-up care, medications, Prescriptions given X 2. 06:04 Patient left the ED. ea Signatures: Dispatcher [employer] EDTX Derrick Calhoun MD MD cha Hagler, Ervin Jaylon, Lien ds1 Shilpa Velazquez Amber RN RN ak1 Derrick Bermeo PA PA cp Antunez, Elena, RN RN josue Corrections: (The following items were deleted from the chart) 06:03 05:59 Reassessment: Patient and/or family updated on plan of care and expected ea duration. Pain level reassessed. Patient is alert, oriented x 3, equal unlabored respirations, skin warm/dry/pink. Discharge instruction given to patient, verbalized the understanding of instruction. Pt reports symptoms improved some. ea
--- NOTE | 2018-12-17 08:19 | RAD REPORT ---
EXAM DESCRIPTION: RAD - Hand Right 3 View - 12/17/2018 1:00 am CLINICAL HISTORY: Right hand pain, trauma COMPARISON: None. FINDINGS: No fracture is identified. There is no dislocation or periosteal reaction noted. No forei gn body or other soft tissue abnormality. IMPRESSION: Negative right hand examination. Repeat imaging in 7 days can be performed if the patien t has continued symptoms concerning for fracture.
--- NOTE | 2018-12-17 10:31 | RAD REPORT ---
EXAM DESCRIPTION: CT - Abdomen Pelvis W Contrast - 12/17/2018 6:44 am CLINICAL HISTORY: 28-year-old female with lower abdominal pain with nausea and vomiting TECHNIQUE: Axial CT imaging of the abdomen and pelvis was performed following the administration of intravenous contrast.. Sagittal and coronal reconstructed images were then performed. The CT stud y is performed according to ALARA (as low as reasonably achievable) or ALARA/IMAGE GENTLY, with autom atic adjustment of mA and/or kV according to patient size. Performed on: 12/17/2018 at 4:23 AM. COMPARISON: None FINDINGS: Lung bases: The lung bases are clear. There is minimal atelectasis and/or fibrosis in the left lung base. Liver: The liver is normal in size and configuration. No focal hepatic abnormalities are identified. Liver attenuation is within normal limits. Spleen: The spleen is normal is size, configuration and attenuation. Gallbladder and bile duct: The gallbladder is well distended and unremarkable. There is no biliary ductal dilatation. Pancreas: The pancreas is grossly normal in size and configuration. Adrenal Glands: The adrenal glands are normal in size and configuration. Kidneys: The kidneys are normal in size and configuration. There is no evidence of hydronephrosis. Th ere is a nonobstructing left upper pole renal calculus. No definite solid or cystic renal mass lesion s are identified. Stomach: The stomach is grossly normal. There is no definite hiatal hernia. Bowel: The bowel gas pattern is non specific and non obstructive. Appendix: The appendix is normal. Free air: There is no evidence of free air. Free fluid: There is no evidence of free fluid. Vasculature: The aorta is normal in caliber and contour. The inferior vena cava is grossly unremarkab le. Lymphadenopathy: No pathologic lymphadenopathy is identified. Bladder: The bladder is well distended and smooth in contour. Reproductive: The uterus is grossly within normal limits. There are bilateral ovarian cysts measuring approximately 3.5 x 1.5 cm on the right and 3.4 x 3.0 cm on the left. Bones: No acute osseous abnormalities are identified. There is a prominent disc osteophyte complex at L4-L5 resulting in mild to moderate canal stenosis. Soft tissues: No focal soft tissue abnormalities are identified. IMPRESSION: 1. No evidence of acute intra-abdominal or intrapelvic pathology. 2. Nonobstructing left upper pole renal calculus. 3. 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 4. Bilateral ovarian cysts. No follow-up imaging recommended. Electronically signed by: Isabel Gurrola DO 12/17/2018 4:55 AM CDT Due to temporary technical issues with the PACS/Fluency reporting system, reports are being signed by the in house radiologist as a courtesy to ensure prompt reporting. The interpreting radiologist is f ully responsible for the content of the report.
== END 2018-12-17 06:04 | disposition home or self-care (01) ==
LOC: ER 23:46
DX: R10.819 Abdominal tenderness, unspecified site (principal); D72.829 Elevated white blood cell count, unspecified; N83.209 Unspecified ovarian cyst, unspecified side; F17.210 Nicotine dependence, cigarettes, uncomplicated; Z88.0 Allergy status to penicillin
CPT/HCPCS: 36415; 74177; 80048; 80076; 80185; 80307; 81003; 81015; 81025; 83690; 84703; 85025; 96361; 96374; 96375; 99285; J2405; J7030; Q9967